=== PATIENT | female | born 1975 ===

== ENCOUNTER 2020-02-04 13:37 | Emergency (ER) | payer OTHER, SELFPAY ==
[2020-02-04 14:06] VITALS: BP 139/84; PULSE 85; RESP 18; TEMP 37.1; O2SAT 98; BMI 34.4
--- NOTE | 2020-02-04 14:55 | XR_ITS ---
WS: [id number] SHOULDER RIGHT TECHNIQUE: 3 views of the right shoulder CLINICAL INFORMATION: pain COMPARISON: None. FINDINGS: Normal acromioclavicular joint. Normal glenohumeral joint. Acromion is normal in appearance. Normal g lenoid. No evidence of acute fracture dislocation. XR/XR shoulder RT min 2V* [id number] IMPRESSION: Normal right shoulder.
--- NOTE | 2020-02-04 16:31 | W.ED.EXTPRO ---
HPI - Extremity Problem General: Chief complaint: Extremity Problem,Nontraumatic Stated complaint: RIGHT SHOULDER INJURY Time Seen by Provider: 02/04/20 16:31 History of Present Illness: HPI Narrative: Patient is a 44-year-old female comes to the ED with right shoulder pain. Patient says pain in right shoulder started about 3 weeks ago. Denies any accident, trauma or injury to cause right shoulder pain. Patient says she does have a history of psoriatic arthritis. She saw her primary care doctor approximately 2 weeks ago for right shoulder pain and he had her rest and do minimal exercise activity and also put her on diclofenac and Flexeril. Patient is very active and does a lot of swimming as exercise. She swam on Friday and then today she tried to swim and the right shoulder pain was worse. Associated symptoms: Deny chest pain, fever(s) or rash Review of Systems Const: Denies: fever(s), chills or fatigue Eyes: Denies: change in vision or eye discomfort ENMT: Denies: throat pain, odynophagia, nasal discharge or nasal congestion Card: Denies: chest pain, palpitations, edema, swelling of feet/ankles, dyspnea on exertion or orthopnea Resp: Denies: dyspnea, productive cough or non-productive cough GI: Denies: abdominal pain, nausea, vomiting, diarrhea, constipation or hematochezia : Denies: flank pain, dysuria or hematuria Musc: Reports: extremity pain (right shoulder pain); Denies: neck pain, back pain or extremity swelling Skin/Breast: Denies: rash or new lesions Neuro: Denies: headache(s), numbness in extremities or weakness in extremities [facility] ED PFSH: Medical History Psoriatic arthritis Physical Exam Const: COMMON NORMALS: no acute distress, patient oriented x3 and alert GENERAL APPEARANCE: cooperative and comfortable HENMT: COMMON NORMALS: normocephalic HEAD & SCALP: normocephalic MOUTH: Normal oral and palatal mucosa present THROAT: posterior oropharynx normal and uvula midline Eye: COMMON NORMALS: Equal, round and reactive pupils present PUPIL: Yes Equal, round and reactive pupils present Neck/C-Spine: COMMON NORMALS: supple GENERAL: Yes normal visual inspection Resp: COMMON NORMALS: normal respiratory effort, No retractions, No use of accessory muscles and clear to auscultation bilaterally AUSCULTATION: clear to auscultation bilaterally Cardio: COMMON NORMALS: regular rate, regular rhythm, S1 normal heart sound present, S2 normal heart sound present, No gallops present (Cardio), No clicks present (Cardio), No murmurs present (Cardio) and Peripheral pulses 2+ throughout RATE: regular rate RHYTHM: regular rhythm HEART SOUNDS: S1 normal heart sound present and S2 normal heart sound present PERIPHERAL PULSES: Peripheral pulses 2+ throughout GI: COMMON NORMALS: Normal to inspection, nondistended, normoactive bowel sounds present, Soft to palpation, non-tender and no masses PALPATION: Yes Soft to palpation : COMMON NORMALS: Yes no CVA tenderness BLADDER/KIDNEY EXAM: Yes no CVA tenderness Back/Pelvis: COMMON NORMALS: no CVA tenderness THORACIC SPINE/UPPER BACK: Yes paraspinal muscle tenderness Thoracic paraspinal muscle tenderness: right Right thoracic paraspinal muscle tenderness: T1 and T2 Extremity: RIGHT UPPER EXTREMITY: Yes bony scapula (Neurovascular intact?2+ radial pulse, sensation intact.) Right bony scapula: Yes inspection (No erythema or swelling.) and Yes palpation (Soft tissue tenderness upon palpation.) Neuro: COMMON NORMALS: patient oriented x3 and moves all extremities SENSORIUM/ORIENTATION: Yes alert Skin: COMMON NORMALS: no rashes or lesions noted GENERAL SKIN EXAM: no rashes or lesions noted and dry skin Course Vital Signs: Vital signs: Vital Signs Temperature 98.7 F 02/04/20 14:06 Pulse Rate 82 02/04/20 17:29 Respiratory Rate 18 02/04/20 14:06 Blood Pressure 139/84 02/04/20 14:06 Pulse Oximetry 98 02/04/20 17:29 MDM - Extremity (Nontraumatic) Imaging Data^: Xray Ortho: Attestation: I personally reviewed and interpreted this imaging study as follows: Radiologist's impression: [address] [address] XRay Report Signed Patient: Columba Mcnair Unit #: [id number] : 1975 Age/Sex: 44 / F ADM Date: 02/04/20 Loc: ER Room/Bed: Attending Dr: Ordering Provider/Ordering MD: Ubaldo Baker DO Date of Service: 02/04/20 Procedure(s): XR shoulder RT min 2V* [id number] Accession Number(s): [id number] Report Number: [id number] WS: [id number] SHOULDER RIGHT TECHNIQUE: 3 views of the right shoulder CLINICAL INFORMATION: pain COMPARISON: None. FINDINGS: Normal acromioclavicular joint. Normal glenohumeral joint. Acromion is normal in appearance. Normal glenoid. No evidence of acute fracture dislocation. XR/XR shoulder RT min 2V* [id number] IMPRESSION: Normal right shoulder. Dictated By: Ovidio Mcclain MD Signed By: Ovidio Mcclain MD Signed Date/Time: 02/04/201527 DD/ 27 Discharge Plan Discharge Patient Disposition: Home, Self-Care Clinical Impression: Pain in right shoulder Qualifiers: Chronicity: acute Qualified Code(s): M25.511 - Pain in right shoulder Condition: Stable Discharge Orders: Discharge Order (Routine); Ordered 02/04/20 Ordered By: Steve Ni Discharge Diet: Regular Discharge Activity: Increase activity as tolerated Activity Restrictions/Additional Instructions: Follow-up with medical provider as directed in the next 5-10 days. Rest and ice right shoulder to help with symptoms. Continue taking all medications as previously prescribed. Return to the ER or your medical provider if condition worsens. Please read and understand discharge instructions. If any questions, please ask. Discharge Date/Time: 02/04/20 17:30 Coding Level of Care Code ED Plate Printer for Sebastien Reed Exam Comprehensive
[2020-02-04] MEDS: ketorolac 60 mg/2 mL INJ IM (17:18)
[2020-02-04] MEDS: orphenadrine 30 mg/mL Inj 2 mL 60 MG IM (17:19)
[2020-02-04 17:29] VITALS: PULSE 82; O2SAT 98
== END 2020-02-04 17:30 | disposition home or self-care (01) ==
LOC: ER 18:13
PROVIDERS: Emergency Provider Physician Assistant
DX: M25.511 Pain in right shoulder (principal)
CPT/HCPCS: 12345; 73030; 96372; 99281; 99283; J1885; J2360

== ENCOUNTER 2020-04-18 18:05 | Emergency (ER) | payer OTHER, SELFPAY ==
[2020-04-18 18:11] VITALS: BP 149/105; PULSE 80; RESP 16; TEMP 36.5; O2SAT 96; BMI 34.0
--- NOTE | 2020-04-18 18:22 | W.ED.EYEPROB ---
HPI - Eye Problem General: Chief complaint: Eye Problems Stated complaint: right eye pain Time Seen by Provider: 04/18/20 18:17 Source: patient and RN notes reviewed History of Present Illness: HPI Narrative: 45 yo female with right eye pain since this morning when she rubbed her eye. She had taken her soft contacts out just prior to this and was driving a long distance. Her contacts were month long but she takes them out every night. pain worse with bright light. She thinks she abraded her eye. Associated symptoms: Denies fever(s), headache(s), nausea or vomiting Review of Systems General: Reports: 10 or more systems reviewed and unremarkable except in HPI and below Const: Denies: fever(s) or chills Eyes: Reports: change in vision and blurry vision ENMT: Denies: throat pain Card: Denies: chest pain Resp: Denies: dyspnea GI: Denies: abdominal pain, nausea, vomiting or change in bowel habits : Denies: difficulty voiding Musc: Denies: muscle weakness Skin/Breast: Denies: rash Neuro: Denies: headache(s) Psych: Denies: hopelessness or suicidal ideation Endo: Denies: polyuria Jeffy/Lymph: Denies: easy bruising or easy bleeding All/Imm: Denies: urticaria PFSH ED PFSH: Medical History (Updated 04/18/20 @ 19:00 by Yadira Jones MD) Psoriatic arthritis Social History (Updated 04/18/20 @ 18:15 by Luis Taylor RN) Smoking and tobacco status: never smoked Alcohol intake: current Alcohol intake frequency: holidays/special occasions only Substance/Drug Use: never Physical Exam Const: COMMON NORMALS: no acute distress and patient oriented x3 HENMT: COMMON NORMALS: normocephalic and Normal external nose present HEAD & SCALP: normocephalic NOSE: Normal external nose present Eye: COMMON NORMALS: Equal, round and reactive pupils present and EOMs intact bilaterally GENERAL EYE: normal light reflex VISUAL ACUITY: Yes other (visual acuity noted) PERIORBITAL: periorbital findings normal EYELID: eyelids normal PUPIL: Yes Equal, round and reactive pupils present EOM: No EOM abnormal DIRECT OPHTHALMOSCOPY: Yes normal light reflex OTHER: sclera injected. PERRL 4mm tetracaine 1 drop applied then used fluorescein applied. Bacon Lamp reveals superficial abrasion at junction of iris and sclera. Neuro: COMMON NORMALS: patient oriented x3 Course Vital Signs: Vital signs: Vital Signs Temperature 98.1 F 04/18/20 19:10 Pulse Rate 78 04/18/20 19:10 Respiratory Rate 16 04/18/20 19:10 Blood Pressure 134/89 04/18/20 19:10 Pulse Oximetry 99 04/18/20 19:10 MDM - Eye Problem MDM Narrative: Medical decision making narrative: Corneal abrasion. Gentamicin eyedrops for 7 days no contacts follow-up with ophthalmology if needed. Patient requested name of information security consultant and wants to establish with 1 since she is only been to the pipeline construction inspector at [facility]. Discharge Plan Discharge Patient Disposition: Home Clinical Impression: Corneal abrasion Qualifiers: Encounter type: initial encounter Laterality: right Qualified Code(s): S05.01XA - Injury of conjunctiva and corneal abrasion without foreign body, right eye, initial encounter Condition: Stable Prescriptions: [place] 7.5-325 mg tablet 1 tab PO Q6H PRN (Reason: pain) Qty: 7 RF: 0 gentamicin 0.3 % drops 1 drop ophthalmic (eye) Q4H 7 Days Qty: 5 RF: 0 Discharge Orders: Discharge Order (Routine); Ordered 04/18/20 Ordered By: Yadira Jones Referrals: Carlos Enrique Romero MD [Physician] - (r corneal abrasion. wants to establish with eye physician instead of [facility] ) Patient Instructions: Corneal Abrasion (ED) Coding Level of Care Code ED Needle Polisher for Chg Fwd Exam Expanded Problem Focused
[2020-04-18 18:28] VITALS: BP 145/106; PULSE 84; RESP 16
[2020-04-18] MEDS: fluorescein 1 mg Strip EYE-RIGHT (18:40)
[2020-04-18] MEDS: tetracaine 0.5% Op Soln 4 mL Btl 1 DROP EYE-RIGHT (18:57)
[2020-04-18] MEDS: HYDROcodone-acetaminophen 7.5-325 mg Tablet 1 TAB PO (19:00)
[2020-04-18 19:10] VITALS: BP 134/89; PULSE 78; RESP 16; TEMP 36.7; O2SAT 99
== END 2020-04-18 19:10 | disposition home or self-care (01) ==
LOC: ER 19:50
PROVIDERS: Emergency Provider Emergency Medicine; PCP Chiropractor Orthopedic
DX: S05.01XA Injury of conjunctiva and corneal abrasion without foreign body, right eye, initial encounter (principal); X58.XXXA Exposure to other specified factors, initial encounter
CPT/HCPCS: 12345; 99281; 99283

== ENCOUNTER → 2020-07-23 08:51 | Outpatient (BNVA) | payer OTHER, SELFPAY | PROVIDERS: PCP Chiropractor Orthopedic; Visit Provider Nurse Practitioner | DX: Z20.828 Contact with and (suspected) exposure to other viral communicable diseases (principal) | CPT/HCPCS: 87635 ==

== ENCOUNTER 2020-09-22 04:21 | Emergency (ER) | payer OTHER, SELFPAY ==
[2020-09-22 04:25] VITALS: BP 158/98; PULSE 76; RESP 18; TEMP 36.6; O2SAT 100; BMI 34.4
[2020-09-22] MEDS: ketorolac 60 mg/2 mL INJ IM (04:43)
[2020-09-22] MEDS: orphenadrine 30 mg/mL Inj 2 mL 60 MG IM (04:46)
--- NOTE | 2020-09-22 04:49 | ED_ITS ---
Documented by User: Matthew Christy MD 09/23/20 08:29 HPI - Back Pain/Injury General: Chief Complaint: Back Pain/Injury Stated Complaint: back pain Time Seen by Provider: 09/22/20 04:33 History of Present Illness: HPI Narrative: The patient is a 45-year-old female with history of psoriatic arthritis who was fixing a pipe for several hours yesterday on her knees. She got up after all the job was done and had 6 a sharp severe pain to her low back. Denies radiation down her legs. She says she took a tizanidine at 7 PM which helped her sleep but she woke up this morning in severe pain and is unable to move without crying. Denies bowel and bladder incontinence and saddle anesthesia MD elicited complaint: back pain and back injury Pertinent past history: prior back pain Timing: constant Severity: severe Quality: sharp Location: lumbar spine Radiation: none Exacerbating factors: movement Relieving factors: none Associated symptoms: Reports no associated symptoms; Deny abdominal pain, difficulty walking, fatigue or urinary urgency Review of Systems General: Reports: 10 or more systems reviewed and unremarkable except in HPI and below Const: Denies: fatigue Eyes: Denies: change in vision, blurry vision or eye redness ENMT: Denies: throat pain, swelling of lips/tongue, ear or mastoid pain or nasal congestion Card: Denies: chest pain, palpitations, irregular heart rhythm, edema, dyspnea on exertion or orthopnea Resp: Denies: dyspnea, productive cough or non-productive cough GI: Denies: abdominal pain, diarrhea or GI cramping : Denies: flank pain, difficulty voiding, urinary frequency or urinary urgency Musc: Reports: back pain; Denies: neck pain, extremity pain, joint pain, joint redness, limited range of motion or muscle weakness Skin/Breast: Denies: rash, pruritus, erythema, skin pain or skin tenderness Neuro: Denies: headache(s), numbness in extremities, weakness in extremities, sensory changes, difficulty walking, dizziness, confusion or Slurred speech present Psych: Denies: anxiety or depression Endo: Denies: polyuria All/Imm: Denies: urticaria, throat swelling or tongue swelling PFSH ED PFSH: Medical History Psoriatic arthritis Social History Smoking and tobacco status: never smoked Alcohol intake: current Alcohol intake frequency: holidays/special occasions only Physical Exam Const: COMMON NORMALS: no acute distress, average body habitus, patient oriented x3, no limitations, healthy appearing, alert and well nourished GENERAL APPEARANCE: cooperative, comfortable, well kempt and well developed ORIENTATION/CONSCIOUSNESS: Yes awake, Yes oriented to person, Yes oriented to place and Yes oriented to time HENMT: COMMON NORMALS: normocephalic, external ears normal and Normal external nose present HEAD & SCALP: normal to inspection and normocephalic NOSE: Normal external nose present EXTERNAL EAR: Yes external ears normal MOUTH: Normal oral and palatal mucosa present THROAT: posterior oropharynx normal Eye: COMMON NORMALS: Equal, round and reactive pupils present and EOMs intact bilaterally GENERAL EYE: appearance normal, both eyes and all related structures PUPIL: Yes Equal, round and reactive pupils present Neck/C-Spine: COMMON NORMALS: full ROM, no lymphadenopathy, no meningeal signs and no JVD GENERAL: Yes normal visual inspection Lymph: LYMPHATIC: no lymphadenopathy noted Chest: COMMONS NORMALS: normal inspection of the chest and normal palpation of entire chest wall Resp: COMMON NORMALS: normal respiratory effort, No retractions, No use of accessory muscles, clear to auscultation bilaterally and percussion normal EFFORT & INSPECTION: Yes able to speak in complete sentences AUSCULTATION: clear to auscultation bilaterally PERCUSSION: percussion normal Cardio: COMMON NORMALS: no JVD, regular rate, regular rhythm, S1 normal heart sound present, S2 normal heart sound present and Peripheral pulses 2+ throughout RATE: regular rate RHYTHM: regular rhythm HEART SOUNDS: S1 normal heart sound present and S2 normal heart sound present PERIPHERAL PULSES: Peripheral pulses 2+ throughout GI: COMMON NORMALS: Normal to inspection, nondistended, normoactive bowel sounds present, Soft to palpation, non-tender and no masses INSPECTION: Yes normal to inspection PALPATION: Yes Soft to palpation : COMMON NORMALS: Yes no CVA tenderness BLADDER/KIDNEY EXAM: Yes no CVA tenderness Back/Pelvis: COMMON NORMALS: no CVA tenderness, thoracic and lumbar spine normal to inspection, no thoracic nor lumbar tenderness and thoraco-lumbar ROM normal OTHER: Bilateral lumbar paraspinal muscle tenderness and spasm. Worse on the right. No bony tenderness Extremity: COMMON NORMALS: normal to inspection, full ROM, capillary refill normal, no joint enlargement and no pedal edema GENERAL: Yes normal exam except as noted Neuro: COMMON NORMALS: patient oriented x3, CN's II-XII intact bilaterally, moves all extremities, no focal motor deficits, no sensory deficits noted and gait normal SENSORIUM/ORIENTATION: Yes alert, Yes oriented to person, Yes oriented to place and Yes oriented to time MENINGEAL SIGNS: Yes no meningeal signs Psych: COMMON NORMALS: mental status grossly normal, Normal thought process present, cooperative, normal affect and speech normal APPEARANCE: Yes well kempt ATTITUDE: Yes calm SPEECH: Yes normal speech THOUGHT PROCESS: Normal thought process present Skin: COMMON NORMALS: no rashes or lesions noted GENERAL SKIN EXAM: no rashes or lesions noted Course Vital Signs: Vital signs: Vital Signs Temperature 97.9 F 09/22/20 04:25 Pulse Rate 72 09/22/20 07:05 Respiratory Rate 16 09/22/20 06:07 Blood Pressure 134/88 09/22/20 07:05 Pulse Oximetry 99 09/22/20 07:05 Discharge Plan Discharge Patient Disposition: Home Clinical Impression: Strain of lumbar region Condition: Stable Prescriptions: New Medrol (Nima) 4 mg tablets,dose pack See Rx Instructions .ROUTE .COMPLEX Qty: 21 RF: 0 tizanidine 4 mg capsule 4 mg PO Q8H PRN (Reason: muscle spasticity) Qty: 30 RF: 0 No [place] 7.5-325 mg tablet 1 tab PO Q6H PRN (Reason: pain) Qty: 7 RF: 0 Discharge Orders: Discharge ED (Routine); Ordered 09/22/20 Ordered By: Ubaldo Baker Referrals: Joanne Ansari, N[employer] TIME BABYSITTER, [place] [Primary Care Provider] - Discharge Diet: Usual diet Discharge Activity: Increase activity as tolerated Patient Instructions: Opioid Safety Activity Restrictions/Additional Instructions: Follow-up with your primary care doctor within the next few days. Use the previously prescribed hydrocodone and diclofenac as needed. You are also given a prescription for steroid (take as directed on the package) and more muscle relaxers to use as needed. Recommend following up with your primary care doctor for potential physical therapy to for your back. Stand Alone Forms: Work/School Release Coding Level of Care Code ED Title Vehicle Service Attendant for Sebastien Fwjen Exam Comprehensive Documented by User: Ubaldo Baker DO 09/22/20 07:08 HPI - Back Pain/Injury General: Chief Complaint: Back Pain/Injury Stated Complaint: back pain Time Seen by Provider: 09/22/20 04:33 PFSH ED PFSH: Medical History Psoriatic arthritis Social History Smoking and tobacco status: never smoked Alcohol intake: current Alcohol intake frequency: holidays/special occasions only Course Vital Signs: Vital signs: Vital Signs Temperature 97.9 F 09/22/20 04:25 Pulse Rate 72 09/22/20 07:05 Respiratory Rate 16 09/22/20 06:07 Blood Pressure 134/88 09/22/20 07:05 Pulse Oximetry 99 09/22/20 07:05 MDM - Back Pain/Injury MDM Narrative: Medical decision making narrative: Assumed a change of shift. Plain film x-rays are normal. Patient states she is feeling better. Discharge home with Medrol Dosepak refill of tizanidine. Patient relates she has diclofenac and hydrocodone at home she usually is on Humira which is managed by clinical documentation consultant encouraged to follow-up with her primary care doctor for referral to PT. Discharge Plan Discharge Patient Disposition: Home Clinical Impression: Strain of lumbar region Condition: Stable Prescriptions: New Medrol (Nima) 4 mg tablets,dose pack See Rx Instructions .ROUTE .COMPLEX Qty: 21 RF: 0 tizanidine 4 mg capsule 4 mg PO Q8H PRN (Reason: muscle spasticity) Qty: 30 RF: 0 No [place] 7.5-325 mg tablet 1 tab PO Q6H PRN (Reason: pain) Qty: 7 RF: 0 Discharge Orders: Discharge ED (Routine); Ordered 09/22/20 Ordered By: Ubaldo Baker Referrals: Joanne Ansari FNP, [place] [Primary Care Provider] - Discharge Diet: Usual diet Discharge Activity: Increase activity as tolerated Patient Instructions: Opioid Safety Activity Restrictions/Additional Instructions: Follow-up with your primary care doctor within the next few days. Use the previously prescribed hydrocodone and diclofenac as needed. You are also given a prescription for steroid (take as directed on the package) and more muscle relaxers to use as needed. Recommend following up with your primary care doctor for potential physical therapy to for your back. Stand Alone Forms: Work/School Release Coding Level of Care Code ED Title Vehicle Service Attendant for Sebastien Fwd Exam Comprehensive
--- NOTE | 2020-09-22 06:05 | XR_ITS ---
WS: [id number] LUMBAR SPINE: 3 VIEWS TECHNIQUE: AP, lateral and L5-S1 spot. HISTORY: pain COMPARISON: None available. Lumbar vertebra are normally aligned. No loss of disc space or vertebral body height. SI joints are symmetric bilaterally. No soft tissue abnormalities. Prior cholecystectomy. XR/XR lumbar spine 2-3V* [id number] IMPRESSION: Normal lumbar spine.
[2020-09-22 06:07] VITALS: RESP 16; O2SAT 100
[2020-09-22] MEDS: morphine 4 mg/mL SDV 1 mL IM (06:07)
[2020-09-22 07:05] VITALS: BP 134/88; PULSE 72; O2SAT 99
== END 2020-09-22 07:06 | disposition home or self-care (01) ==
PROVIDERS: Emergency Provider Family Medicine; PCP Chiropractor Orthopedic
DX: S39.012A Strain of muscle, fascia and tendon of lower back, initial encounter (principal); X50.9XXA Other and unspecified overexertion or strenuous movements or postures, initial encounter
CPT/HCPCS: 72100; 96372; 99283; J1885; J2270; J2360